=== PATIENT | male | born 1960 | race Caucasian/White ===

== ENCOUNTER 2019-03-19 16:14 | Emergency (ER) | payer OTHER ==
[~2019-03-19] VITALS: Ht 185.4 cm; Wt 107.0 kg
--- OUTSIDE RECORDS SUMMARY | 2019-03-19 16:18 | XMS ---
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 Dimitri has no Care Guidelines for this patient. Radha VISIT COUNT (12 MO.) 1 [facility] 1 JAY L[facility]pez TOTAL 2 NOTE: Visits indicate total known visits. ED/C VISIT TRACKING (12 MO.) 03/19/2019 16:15 [facility] [place] TYPE: Emergency COMPLAINT: - LEFT LEG PAIN/POST OP ISSUE [facility]2018 11:[facility] DIAGNOSES: - Acute embolism and thombos unsp deep vn unsp lower extremity - Oth complications of procedures, NEC, init - Referral - Phlbts and thombophlb of unsp deep vessels of l low extrem INPATIENT VISIT TRACKING (12 MO.) [facility] DIAGNOSES: - Edema, unspecified - Radiculopathy, lumbar region - Iron deficiency anemia secondary to blood loss (chronic) - Spondylolisthesis, lumbosacral region - 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 - Embolism and thrombosis of arteries of the lower extremities - Acute embolism and thrombosis of left iliac vein - Other specified disorders of the male genital organs 10/08/2018 08:40 [facility] TYPE: [facility] DIAGNOSES: - M43.16, M43.06 10/06/2018 05:38 [facility]: [facility] DIAGNOSES: - Spondylolisthesis, lumbar region - M43.16, M43.06 - Spondylolysis, lumbar region - Encounter for other preprocedural examination [id number]
[2019-03-19] MEDS ORDERED: ATORVASTATIN CA40 MG PO (17:04)
[2019-03-19] MEDS ORDERED: METOPROLOL SUCC50 MG PO (17:04)
[2019-03-19] MEDS ORDERED: RAMIPRIL10 MG PO (17:04)
[2019-03-19] MEDS ORDERED: VASCEPA1 GM PO (17:04)
[2019-03-19] MEDS ORDERED: BACLOFEN5 MG PO (17:04)
[2019-03-19] MEDS ORDERED: ELIQUIS5 MG PO (17:04)
[2019-03-19] MEDS ORDERED: DIAZEPAM2 MG PO (17:05)
== END 2019-03-19 18:06 | disposition home or self-care (01) ==
LOC: ED 16:14
DX: M79.605 Pain in left leg (principal)
CPT/HCPCS: 93971; 99283-25

== ENCOUNTER 2022-08-27 18:28 | Emergency (ER) | payer OTHER ==
[~2022-08-27] VITALS: Ht 185.4 cm; Wt 123.4 kg
[~2022-08-27 18:28] MED LIST: ATORVASTATIN CA40 MG PO; BACLOFEN5 MG PO; DIAZEPAM2 MG PO; ELIQUIS5 MG PO; METOPROLOL SUCC50 MG PO; RAMIPRIL10 MG PO; VASCEPA1 GM PO
--- OUTSIDE RECORDS SUMMARY | 2022-08-27 18:30 | XMS ---
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 Radha VISIT COUNT (12 MO.) 1 JAY L[facility]pez TOTAL 1 NOTE: Visits indicate total known visits. ED/UCC VISIT TRACKING (12 MO.) 08/27/2022 18:29 [facility] [place] TYPE: Emergency COMPLAINT: - CP INPATIENT VISIT TRACKING (12 MO.) No inpatient visits to display in this time frame [email or web address]
[2022-08-27 21:44] VITALS: BP 167/96
--- NOTE | 2022-08-28 15:07 | EKG ---
[facility] [address] [facility] [place] [address] Signed Normal sinus rhythm Normal ECG No previous ECGs available Confirmed by SMOOTH SIMPSON MD ([id number] on 08/28/2022 3:07:14 PM Electronically Signed By: SMOOTH SIMPSON MD 08/28/22 1507 PATIENT NAME: NITHIN JUAREZ Electrocardiogram DATE OF : 64 PHYSICIAN: SMOOTH SIMPSON MD REPORT #: [id number] REPORT IS CONFIDENTIAL AND NOT TO BE RELEASED WITHOUT AUTHORIZATION
== END 2022-08-27 21:45 | disposition home or self-care (01) ==
LOC: ED 18:28
DX: R07.89 Other chest pain (principal); Z86.718 Personal history of other venous thrombosis and embolism; Z79.01 Long term (current) use of anticoagulants; Z79.899 Other long term (current) drug therapy
CPT/HCPCS: 36415; 71045; 80053; 84484; 85025; 85379; 85610; 93005; 93010; 99285-25